=== PATIENT | female | born 1950 | race African-American/Black ===

== ENCOUNTER 2021-06-12 15:57 | Inpatient (IN) ==
[2021-06-12] MEDS ORDERED: ONDANSETRON 4 MG/2 ML VIAL IV ONE (16:21)
[2021-06-12] MEDS ORDERED: SODIUM CHLORIDE 0.9% 500 ML IV STA (16:22)
[2021-06-12] MEDS ORDERED: METOPROLOL TARTRATE 5 MG/5 ML VIAL IV STA (16:25)
[2021-06-12 16:38] LABS: Basophils # 0.1 10*3/uL (0.0-0.2); Basophils % 0.2 % (0.0-0.8); Hematocrit 38.5 VOL% (35.7-47.0); Hemoglobin 12.5 GM/DL (12.0-16.0); Immature Granulocytes % 2.6 %; Immature Granulocytes Absolute 0.74 #; Lymphocytes # 1.1 10*3/uL (1.4-4.0); Lymphocytes % 3.7 % (21.3-54.2); Mean Corpuscular HGB Conc 32.5 GM/DL (32-36); Mean Platelet Volume 11.8 FL (9.6-12.0); Monocytes % 6.3 % (1.7-12.7); Neutrophils % 87.2 % (38.7-73.9); Platelet Count 320 T/CUMM (130-400); Red Blood Count 4.23 MC/CUMM (3.8-5.5); Red Cell Distribution Width 15.8 % (9.3-17.3); White Blood Count 28.7 T/CUMM (4-12)
[2021-06-12 16:56] LABS: Bilirubin,Total 0.6 MG/DL (0.20-1.00); Potassium 3.1 MMOL/L (3.5-5.1); Total Protein 7.1 G/DL (6.4-8.2)
[2021-06-12] MEDS ORDERED: LACTATED RINGERS 1,000 ML IV ONE (17:02)
[2021-06-12 17:13] LABS: Lymphocytes 4 % (20-55); Microcytosis Slight; Segmented Neutrophils 93 % (50-85); Total Cells Counted 100
[2021-06-12 17:14] LABS: Platelet Estimate Adequate
[2021-06-12] MEDS ORDERED: POTASSIUM CHLORIDE RIDER 20 MEQ/100 ML PREMIX IV STA (17:23)
[2021-06-12 17:35] LABS: ABG Base Excess -1.2 MMOL/L (-2.5-2.5); ABG HCO3 23.4 MMOL/L (20-26); ABG PCO2 31.6 MM HG (35-48); ABG TCO2 19.5 MMOL/L (23-27)
[2021-06-12] MEDS ORDERED: GLUCAGON 1 MG VIAL IM PRN (18:28)
[2021-06-12] MEDS ORDERED: ONDANSETRON 4 MG/2 ML VIAL IV PRN (18:28)
[2021-06-12] MEDS ORDERED: ENOXAPARIN 30 MG/0.3 ML SYRINGE SUBCUT SCH (18:30)
[2021-06-12] MEDS ORDERED: METOPROLOL TARTRATE 5 MG/5 ML VIAL IV PRN (18:32)
[2021-06-12] MEDS ORDERED: METOPROLOL TARTRATE 25 MG TABLET PO STA (18:32)
[2021-06-12] MEDS ORDERED: DEXTROSE 50% 25 GM/50 ML SYRINGE IV PRN (18:35)
[2021-06-12] MEDS: POTASSIUM CHLORIDE RIDER 10 MEQ/100 ML PREMIX IV SCH ×2 (18:58→21:27)
[2021-06-12] MEDS: LACTATED RINGERS 1,000 ML IV SCH (21:28)
[2021-06-12] MEDS ORDERED: POTASSIUM CHLORIDE RIDER 10 MEQ/100 ML PREMIX IV ONE (21:30)
[2021-06-12] MEDS: INSULIN LISPRO 100 UNIT/ML SUBCUT SCH (23:28)
[2021-06-12] MEDS: MECLIZINE 25 MG TABLET PO PRN (23:28)
[2021-06-13 02:48] LABS: Bacteria,Urine Occasional /HPF (Few); Bilirubin,Urine Negative (Negative); Blood, Urine Large mg/dL (Negative); Glucose,Urine (UA) >=500 mg/dL (Negative); Hyaline Casts,Urine 1 /LPF (0-3); Ketones,Urine Negative (Negative); Mucus,Urine Occasional /LPF (Occasional); Nitrite,Urine Negative (Negative); Protein,Urine 30 MG/DL; RBC,Urine <1 /HPF (0-4); Squamous Epithelial Cell,Urine Occasional /HPF (0-10); Urine Appearance CLEAR (Clear); Urine Color Yellow (Yellow); Urine Specific Gravity 1.009 (1.001-1.035); Urine Urobilinogen < 2.0 EU/DL (0.2-1.0)
[2021-06-13 03:43] LABS: Basophils % 0.1 % (0.0-0.8); Hematocrit 31.5 VOL% (35.7-47.0); Hemoglobin 10.3 GM/DL (12.0-16.0); Immature Granulocytes % 0.9 %; Immature Granulocytes Absolute 0.21 #; Lymphocytes # 2.4 10*3/uL (1.4-4.0); Lymphocytes % 10.6 % (21.3-54.2); Mean Corpuscular HGB Conc 32.7 GM/DL (32-36); Mean Corpuscular Volume 89.7 FL (87-102); Mean Platelet Volume 11.7 FL (9.6-12.0); Monocytes % 5.9 % (1.7-12.7); Neutrophils % 82.5 % (38.7-73.9); Platelet Count 207 T/CUMM (130-400); Red Blood Count 3.51 MC/CUMM (3.8-5.5); Red Cell Distribution Width 16.2 % (9.3-17.3); White Blood Count 22.4 T/CUMM (4-12)
[2021-06-13 04:14] LABS: Hypochromasia 1+; Lymphocytes 6 % (20-55); Microcytosis 1+; Platelet Estimate Normal; Segmented Neutrophils 91 % (50-85); Total Cells Counted 100
[2021-06-13 04:16] LABS: Blood Urea Nitrogen 16 MG/DL (7-18); Calcium 7.3 MG/DL (8.5-10.1); Carbon Dioxide 25 MMOL/L (21-32); Estimated Glom Filtration Rate 50 ML/MIN; Glucose 192 MG/DL (74-106); Osmolality,Calculated 288.1 MOS/KG (273-304); Potassium 3.2 MMOL/L (3.5-5.1); Sodium 142 MMOL/L (136-145); Thyroid Stimulating Hormone 0.392 uIU/ml (0.358-3.74)
[2021-06-13] MEDS ORDERED: MAGNESIUM SULF RIDER 2 GM/50 ML PREMIX IV PRN (04:32)
[2021-06-13] MEDS: LACTATED RINGERS 1,000 ML IV SCH ×2 (05:22→13:07)
[2021-06-13] MEDS: POTASSIUM CHLORIDE 20 MEQ TABLET PO PRN ×2 (06:00→09:04)
[2021-06-13] MEDS: INSULIN LISPRO 100 UNIT/ML SUBCUT SCH ×3 (06:00→17:53)
[2021-06-13] MEDS: cefTRIAXone 1,000 MG in SODIUM CHLORIDE 0.9% 100 ML IV SCH (06:00)
[2021-06-13] MEDS: MAGNESIUM SULF RIDER 4 GM/100 ML PREMIX IV PRN (07:21)
[2021-06-13] MEDS: amLODIPine 10 MG TABLET PO SCH (09:02)
[2021-06-13] MEDS: PANTOPRAZOLE 40 MG TABLET PO SCH (09:02)
[2021-06-13] MEDS: MECLIZINE 25 MG TABLET PO PRN ×2 (09:04→17:53)
[2021-06-13] MEDS ORDERED: MAGNESIUM SULF RIDER 4 GM/100 ML PREMIX IV ONE (10:42)
[2021-06-13] MEDS ORDERED: POTASSIUM CHLORIDE 20 MEQ TABLET PO ONE (10:45)
[2021-06-13] MEDS ORDERED: ASPIRIN CHEW 81 MG TABLET PO ONE (11:12)
[2021-06-13] MEDS ORDERED: hydrALAZINE 20 MG/1 ML VIAL IV PRN (11:13)
[2021-06-13] MEDS ORDERED: METOPROLOL TARTRATE 5 MG/5 ML VIAL IV ONE (11:26)
[2021-06-13] MEDS: APIXABAN 5 MG TABLET PO SCH ×2 (13:07→21:45)
[2021-06-13] MEDS ORDERED: diphenhydrAMINE CAP 25 MG CAPSULE PO PRN (18:39)
[2021-06-13] MEDS ORDERED: ZALEPLON 5 MG CAPSULE PO PRN (18:39)
[2021-06-13] MEDS: ATORVASTATIN 40 MG TABLET PO SCH (21:45)
[2021-06-13] MEDS: METOPROLOL TARTRATE 25 MG TABLET PO SCH (21:45)
[2021-06-14 05:16] LABS: Basophils % 0.2 % (0.0-0.8); Eosinophils # 0.1 10*3/uL (0.0-0.87); Eosinophils % 0.8 % (0.00-10.9); Hematocrit 30.7 VOL% (35.7-47.0); Hemoglobin 9.5 GM/DL (12.0-16.0); Immature Granulocytes Absolute 0.11 #; Lymphocytes # 1.4 10*3/uL (1.4-4.0); Lymphocytes % 12.9 % (21.3-54.2); Mean Corpuscular HGB Conc 30.9 GM/DL (32-36); Mean Corpuscular Volume 94.5 FL (87-102); Mean Platelet Volume 11.3 FL (9.6-12.0); Monocytes % 6.4 % (1.7-12.7); Neutrophils % 78.7 % (38.7-73.9); Platelet Count 162 T/CUMM (130-400); Red Blood Count 3.25 MC/CUMM (3.8-5.5); Red Cell Distribution Width 16.6 % (9.3-17.3); White Blood Count 10.8 T/CUMM (4-12)
[2021-06-14 05:41] LABS: Albumin 2.7 G/DL (3.4-5.0); Bilirubin,Total 1.2 MG/DL (0.20-1.00); Calcium 6.9 MG/DL (8.5-10.1); Osmolality,Calculated 288.8 MOS/KG (273-304); Potassium 3.1 MMOL/L (3.5-5.1); Total Protein 5.7 G/DL (6.4-8.2)
[2021-06-14 06:01] LABS: Risk Ratio 4.47
[2021-06-14] MEDS: LACTATED RINGERS 1,000 ML IV SCH ×4 (06:11→17:53)
[2021-06-14] MEDS: INSULIN LISPRO 100 UNIT/ML SUBCUT SCH ×4 (06:11→17:58)
[2021-06-14] MEDS: cefTRIAXone 1,000 MG in SODIUM CHLORIDE 0.9% 100 ML IV SCH (06:12)
[2021-06-14] MEDS: METOPROLOL TARTRATE 25 MG TABLET PO SCH ×2 (11:02→21:25)
[2021-06-14] MEDS: amLODIPine 10 MG TABLET PO SCH (11:02)
[2021-06-14] MEDS: POTASSIUM CHLORIDE 20 MEQ TABLET PO PRN ×2 (11:02→14:00)
[2021-06-14] MEDS: ASPIRIN CHEW 81 MG TABLET PO SCH (11:03)
[2021-06-14] MEDS: PANTOPRAZOLE 40 MG TABLET PO SCH (11:03)
[2021-06-14] MEDS: APIXABAN 5 MG TABLET PO SCH ×2 (11:03→21:26)
[2021-06-14] MEDS ORDERED: MAGNESIUM SULF RIDER 2 GM/50 ML PREMIX IV ONE (14:11)
[2021-06-14] MEDS ORDERED: POTASSIUM CHLORIDE 20 MEQ TABLET PO ONE (14:12)
[2021-06-14] MEDS: ATORVASTATIN 40 MG TABLET PO SCH (21:26)
[2021-06-15] MEDS: INSULIN LISPRO 100 UNIT/ML SUBCUT SCH ×4 (01:50→17:37)
[2021-06-15] MEDS: LACTATED RINGERS 1,000 ML IV SCH ×3 (05:21→17:37)
[2021-06-15] MEDS: cefTRIAXone 1,000 MG in SODIUM CHLORIDE 0.9% 100 ML IV SCH (05:21)
[2021-06-15 05:46] LABS: Basophils % 0.2 % (0.0-0.8); Eosinophils # 0.1 10*3/uL (0.0-0.87); Eosinophils % 1.3 % (0.00-10.9); Hematocrit 29.8 VOL% (35.7-47.0); Hemoglobin 9.2 GM/DL (12.0-16.0); Immature Granulocytes % 1.3 %; Immature Granulocytes Absolute 0.13 #; Lymphocytes # 1.4 10*3/uL (1.4-4.0); Lymphocytes % 13.8 % (21.3-54.2); Mean Corpuscular HGB Conc 30.9 GM/DL (32-36); Mean Corpuscular Volume 95.5 FL (87-102); Mean Platelet Volume 11.3 FL (9.6-12.0); Monocytes % 5.8 % (1.7-12.7); Neutrophils % 77.6 % (38.7-73.9); Platelet Count 160 T/CUMM (130-400); Red Blood Count 3.12 MC/CUMM (3.8-5.5); Red Cell Distribution Width 16.2 % (9.3-17.3); White Blood Count 9.8 T/CUMM (4-12)
[2021-06-15 06:01] LABS: Calcium 6.9 MG/DL (8.5-10.1); Osmolality,Calculated 284.1 MOS/KG (273-304); Potassium 3.4 MMOL/L (3.5-5.1)
[2021-06-15] MEDS: POTASSIUM CHLORIDE 20 MEQ TABLET PO PRN ×3 (08:07→12:30)
[2021-06-15] MEDS: amLODIPine 10 MG TABLET PO SCH (08:08)
[2021-06-15] MEDS: PANTOPRAZOLE 40 MG TABLET PO SCH (08:08)
[2021-06-15] MEDS: METOPROLOL TARTRATE 25 MG TABLET PO SCH ×2 (08:08→20:25)
[2021-06-15] MEDS: APIXABAN 5 MG TABLET PO SCH ×2 (08:08→20:25)
[2021-06-15] MEDS: ASPIRIN CHEW 81 MG TABLET PO SCH (08:08)
[2021-06-15] MEDS: ATORVASTATIN 40 MG TABLET PO SCH (20:25)
[2021-06-16] MEDS: INSULIN LISPRO 100 UNIT/ML SUBCUT SCH ×4 (00:08→18:09)
[2021-06-16] MEDS: LACTATED RINGERS 1,000 ML IV SCH ×3 (03:19→23:43)
[2021-06-16] MEDS: cefTRIAXone 1,000 MG in SODIUM CHLORIDE 0.9% 100 ML IV SCH (05:48)
[2021-06-16] MEDS: amLODIPine 10 MG TABLET PO SCH (08:54)
[2021-06-16] MEDS: APIXABAN 5 MG TABLET PO SCH ×2 (08:54→21:11)
[2021-06-16] MEDS: ASPIRIN CHEW 81 MG TABLET PO SCH (08:54)
[2021-06-16] MEDS: METOPROLOL TARTRATE 25 MG TABLET PO SCH ×2 (08:54→21:11)
[2021-06-16] MEDS: PANTOPRAZOLE 40 MG TABLET PO SCH (08:54)
[2021-06-16] MEDS: ATORVASTATIN 40 MG TABLET PO SCH (21:11)
[2021-06-17] MEDS: INSULIN LISPRO 100 UNIT/ML SUBCUT SCH ×4 (00:27→17:13)
[2021-06-17] MEDS: LACTATED RINGERS 1,000 ML IV SCH ×2 (01:48→13:26)
[2021-06-17] MEDS: cefTRIAXone 1,000 MG in SODIUM CHLORIDE 0.9% 100 ML IV SCH (05:38)
[2021-06-17 06:34] LABS: Basophils % 0.4 % (0.0-0.8); Eosinophils # 0.2 10*3/uL (0.0-0.87); Eosinophils % 2.8 % (0.00-10.9); Hematocrit 30.5 VOL% (35.7-47.0); Hemoglobin 9.7 GM/DL (12.0-16.0); Immature Granulocytes % 1.4 %; Lymphocytes # 1.3 10*3/uL (1.4-4.0); Lymphocytes % 17.6 % (21.3-54.2); Mean Corpuscular HGB Conc 31.8 GM/DL (32-36); Mean Corpuscular Volume 93.6 FL (87-102); Monocytes % 7.3 % (1.7-12.7); Neutrophils % 70.5 % (38.7-73.9); Platelet Count 168 T/CUMM (130-400); Red Blood Count 3.26 MC/CUMM (3.8-5.5); Red Cell Distribution Width 15.5 % (9.3-17.3); White Blood Count 7.2 T/CUMM (4-12)
[2021-06-17 06:50] LABS: Calcium 8.6 MG/DL (8.5-10.1); Osmolality,Calculated 282.1 MOS/KG (273-304); Potassium 3.1 MMOL/L (3.5-5.1)
[2021-06-17] MEDS: MAGNESIUM SULF RIDER 4 GM/100 ML PREMIX IV PRN (09:16)
[2021-06-17] MEDS: APIXABAN 5 MG TABLET PO SCH (09:18)
[2021-06-17] MEDS: PANTOPRAZOLE 40 MG TABLET PO SCH (09:18)
[2021-06-17] MEDS: ASPIRIN CHEW 81 MG TABLET PO SCH (09:18)
[2021-06-17] MEDS: amLODIPine 10 MG TABLET PO SCH (09:18)
[2021-06-17] MEDS: METOPROLOL TARTRATE 25 MG TABLET PO SCH (09:18)
[2021-06-17] MEDS: POTASSIUM CHLORIDE 20 MEQ TABLET PO PRN ×4 (09:18→14:51)
[2021-06-17] MEDS ORDERED: MAGNESIUM SULF RIDER 2 GM/50 ML PREMIX IV ONE (10:45)
[2021-06-17] MEDS ORDERED: POTASSIUM CHLORIDE 20 MEQ TABLET PO ONE (10:45)
[2021-06-17 15:54] VITALS: BP 143/66
[2021-06-17 17:10] LABS: % Iron Saturation 16.9 % (18-50)
[2021-06-17 17:57] LABS: Folate 8.71 NG/ML (5.38-24.0)
== END 2021-06-17 17:46 | disposition home health service (06) | DRG 682 ==
LOC: N.ED 15:57 → N.EDINP 18:28 → SUATTDRO 18:28 → N.3E 21:35
PROVIDERS: ADMIT Internal Medicine; ATTEND Internal Medicine